=== PATIENT | male | born 1965 | race Caucasian/White ===

== ENCOUNTER 2016-09-19 17:38 | Emergency (ER) | payer SELFPAY ==
[~2016-09-19 17:38] MED LIST: MOTRIN800 MG PO; NORCO 5/325 TAB1 TAB PO
== END 2016-09-19 19:30 | disposition left against medical advice (07) ==
LOC: EDMED 17:38
DX: R22.42 Localized swelling, mass and lump, left lower limb (principal); Z53.21 Procedure and treatment not carried out due to patient leaving prior to being seen by health care provider

== ENCOUNTER 2016-12-11 01:05 | Emergency (ER) | payer SELFPAY ==
[2016-12-11] MEDS ORDERED: PROZAC (01:42)
[2016-12-11] MEDS ORDERED: SEROQUEL50 M1 PO (01:42)
[2016-12-11 02:19] LABS: BASO % 0.5 % (0-2); BASO ABSOLUTE COUNT 0.1 tho/cmm (0.0-0.2); EOS % 5.4 % (0-7); EOSINOPHIL ABSOLUTE COUNT 0.6 tho/cmm (0.0-0.7); HCT-HEMATOCRIT 42.7 % (36.0-53.5); HGB-HEMOGLOBIN 15.2 gm/dl (13.5-17.0); IMMATURE GRANULOCYTES ABSOLUTE 0.01 tho/cmm (0-0.03); IMMATURE GRANULOCYTES PERCENT 0.1 % (0-0.3); LYMPH % 30.9 % (20-45); LYMPH ABSOLUTE COUNT 3.3 tho/cmm (0.8-4.5); MCH (MEAN CORPUSCULAR HGB) 31.6 pg (28.0-32.0); MCHC MEAN CORPUSCULAR HGB CONC 35.6 % (32.0-36.0); MCV (MEAN CELL VOLUME) 88.8 fl (82.0-96.0); MEAN PLATELET VOLUME 11.8 cmc (9.4-12.4); MONO % 4.4 % (0-12); MONOCYTE ABSOLUTE COUNT 0.5 tho/cmm (0.0-1.2); NEUTROPHIL ABSOLUTE COUNT 6.4 tho/cmm (1.6-8.0); NEUTROPHIL-AUTOMATED 6.4 tho/cmm (1.6-8.0); NEUTROPHILS % 58.7 % (40-80); PLATELET COUNT 218 tho/cmm (150-450); RED BLOOD COUNT 4.81 mil/cmm (4.40-5.70); RED CELL DISTRIBUTION WIDTH 14.4 % (12.4-16.4); URINE BILIRUBIN NEGATIVE (NEG); URINE BLOOD NEGATIVE (NEG); URINE GLUCOSE (UA) NEGATIVE (NEG); URINE KETONE NEGATIVE (NEG); URINE LEUKOCYTE ESTERASE NEGATIVE (NEG); URINE NITRITE NEGATIVE (NEG); URINE PROTEIN NEGATIVE (NEG); URINE SPECIFIC GRAVITY 1.005 (1.003-1.030); WHITE BLOOD COUNT 10.8 tho/cmm (4.0-10.0)
[2016-12-11 02:24] LABS: URINE APPEARANCE CLEAR; URINE COLOR PALE YELLOW
[2016-12-11 02:40] LABS: ALBUMIN 3.6 g/dl (3.5-5.0); ALCOHOL (ETOH) 106 mg/dl (<10); ALKALINE PHOSPHATASE 71 U/L (33-138); ALT/SGPT 33 U/L (12-78); ANION GAP 12 mmol/L (0-20); AST/SGOT 19 U/L (10-40); BILIRUBIN,TOTAL 0.3 mg/dl (0.0-1.5); BLOOD UREA NITROGEN 11 mg/dl (6-24); CALCIUM 9.3 mg/dl (8.5-10.5); CARBON DIOXIDE-VENOUS 26 mmol/L (22-32); CHLORIDE 111 mmol/l (96-110); CREATININE 0.93 mg/dl (0.60-1.30); GLUCOSE 82 mg/dL (70-110); POTASSIUM 3.5 mmol/L (3.7-5.1); SALICYLATE 4.5 mg/dl (2.8-20); SODIUM 145 mmol/L (135-145); eGFR VALUE FOR BLACK >90 mL/Min
[2016-12-11 02:42] LABS: ACETAMINOPHEN LEVEL <2.0 ug/ml (10-30)
[2016-12-11 02:43] LABS: TSH-THYROID STIMULATING HORM. 2.65 uIU/ml (0.40-3.80)
== END 2016-12-11 05:19 | disposition other institution (70) ==
LOC: EDMED 01:05
PROVIDERS: Emergency Medicine
DX: T43.592A Poisoning by other antipsychotics and neuroleptics, intentional self-harm, initial encounter (principal); D72.829 Elevated white blood cell count, unspecified; I10 Essential (primary) hypertension; F17.200 Nicotine dependence, unspecified, uncomplicated
CPT/HCPCS: G0480; J2060; J7030